=== PATIENT | female | born 1995 | race Hispanic/Latino ===

== ENCOUNTER 2022-04-27 06:18 | Day surgery (SDC) | payer SELFPAY ==
[2022-04-25 15:05] LABS: Potassium 3.9 mmol/L (3.5-5.1)
[2022-04-27] MEDS ORDERED: Ringers Lactate 1,000 ML IV ONE (06:34)
[2022-04-27] MEDS ORDERED: CEFOXITIN SODIUM 1 GM/VIAL ONE (06:34)
[2022-04-27 07:02] LABS: Urine Specific Gravity/Preg >1.030 (1.005-1.030)
[2022-04-27] MEDS ORDERED: propofoL 200 MG/20 ML VIAL IV ONE (07:22)
[2022-04-27] MEDS ORDERED: FENTANYL CITR 100 MCG/2 ML ONE (07:24)
[2022-04-27] MEDS ORDERED: ONDANSETRON 4 MG/2 ML VIAL ONE (07:24)
[2022-04-27] MEDS ORDERED: LIDOCAINE 2% MPF 5 ML VIAL ONE (07:24)
[2022-04-27] MEDS ORDERED: MIDAZOLAM HCL 2 MG/2 ML INJ ONE (07:24)
[2022-04-27] MEDS ORDERED: ROCURONIUM 50 MG/5 ML VIAL IV ONE (07:24)
[2022-04-27] MEDS ORDERED: BUPIVACAINE 0.25% PF 10 ML VIAL ONE (08:24)
[2022-04-27] MEDS ORDERED: MEPERIDINE HCL 25 MG/ML SYR ONE (08:30)
--- NOTE | 2022-04-27 08:36 | P.OP ---
Sales Promoter: KEANU RODRIGUEZ Preoperative diagnosis: Cholecystitis Postoperative diagnosis: Cholecystitis Primary procedure: Laparoscopic Cholecystectomy with ICG Cholangiography Anesthesia: GETA + Local Estimated blood loss: <5cc Specimen: Gallbladder Findings: Chronic Cholecystitis Complications: None Transferred to: Recovery Room Condition: Good
[2022-04-27] MEDS ORDERED: NEOSTIGMINE 1 MG/ML -5 ML ONE (08:45)
[2022-04-27] MEDS ORDERED: GLYCOPYRROLATE 0.2 MG/ML SYR ONE (08:45)
[2022-04-27] MEDS ORDERED: KETOROLAC 30 MG/ML INJ ONE (08:47)
[2022-04-27 09:01] VITALS: O2SAT 100
[2022-04-27] MEDS: HYDROMORPHONE HCL 1 MG/ML INJ ONE ×3 (09:05→09:18)
[2022-04-27 09:45] VITALS: BP 111/76; TEMP 98.3
[2022-04-27] MEDS ORDERED: HYDROCODONE/APAP 7.5/325 MG TAB ONE (09:57)
--- NOTE | 2022-04-27 20:05 | OP ---
Date of Procedure: 04/27/2022 Surgeon: Jacinto Mancilla MD, Technical Support Consultant: Fozia Carr. Preoperative Diagnosis: Cholecystitis. Postoperative Diagnosis: Cholecystitis. Procedure Performed: Laparoscopic cholecystectomy with indocyanine green cholangiography. Anesthesia: General endotracheal plus local with 0.25% Marcaine. Estimated Blood Loss: Less than 5 cc. Specimen: Gallbladder. Findings: Chronic cholecystitis. Complications: None. Disposition: The patient was transferred to recovery room in good condition. Procedure In Detail: After informed consent was obtained, the patient was brought to the operating r oom, prepped and draped in the usual sterile fashion after adequate anesthesia was achieved. A supra umbilical area was anesthetized with 0.25% Marcaine, sharply incised. A 5 mm trocar was placed under direct visualization without complication. Insufflation was obtained to 15 mmHg at this time. Ther e was no injury to vital structures upon entry into the abdomen. Two additional trocars were placed, 1 in the epigastrium, 1 in the right upper quadrant, both of these were 5 mm trocars placed under di rect visualization without complication. The umbilical trocar then upsized to a 12 mm under direct v ision without complication. I then grasped the patient's gallbladder, placed towards the patient's r ight shoulder after patient was placed in the appropriate position, head up right-side up position. I dissected down to the Crystal's pouch of the gallbladder, indocyanine green cholangiography helped to identify the common duct junction in addition to the normal anatomic landmarks. I scored the per itoneum over the Crystal's pouch and encircled. Two structures identified, both cystic duct and cys tic artery. These structures were skeletonized. Critical view of safety was obtained at this point. I then placed double titanium clips on the proximal side and singly on the distal side of both the cystic duct and cystic artery. I then ligated these structures with the Endo Clay, then removed th e gallbladder off the hepatic fossa without evidence of complication, placed in EndoCatch bag, remove d the umbilical trocar, sent off for pathologic examination. The hepatic fossa was inspected at this point. Clips were found to be in good anatomic position without any bleeding or bile spillage. The area was copiously irrigated. No additional hemostatic was required. The remaining effluent was poe ctioned out, and the patient was positioned back in neutral position. The umbilical trocar site was closed using a Johann-Sue suture passer with 0 Vicryl with good approximation of tissues. The a bdomen was completely desufflated under direct visualization without complication. Remaining skin in cisions were all copiously irrigated, closed with 4-0 Monocryl in running fashion. Dermabond placed over top. The patient tolerated the procedure well without evidence of complication and transferred to PACU in good condition. All counts were correct at the end of the case. VIVIANE/BALDOMERO Voice ID: [id number] Report ID: [id number]
== END 2022-04-27 10:39 | disposition home or self-care (01) ==
LOC: OR 06:18
PROVIDERS: ATTEND Surgery
PROC: BF53200 Other Imaging of Gallbladder and Bile Ducts using Fluorescing Agent, Indocyanine Green Dye, Intraoperative (ICD-10-PCS; 2022-04-27)
PROC: 0FT44ZZ Resection of Gallbladder, Percutaneous Endoscopic Approach (ICD-10-PCS; principal; 2022-04-27 07:30)
DX: K80.10 Calculus of gallbladder with chronic cholecystitis without obstruction (principal)
CPT/HCPCS: 36415; 80048; 81025; 88304; 93005; J0694; J1170; J2001; J2175; J2250; J2405; J2704; J2710; J3010; J7120